=== PATIENT | male | born 1965 | race Caucasian/White ===

== ENCOUNTER 2021-08-21 09:51 | Outpatient (CLI) | payer OTHER, SELFPAY ==
--- NOTE | ~2021-08-21 | XR_ITS ---
EXAMINATION: XR_ENEMABAC_CR DATE: 08/21/2021 11:14 INDICATION: Generalized abdominal pain. Incomplete colonoscopy. TECHNIQUE: A calender let off operator radiograph was obtained. A catheter was inserted into the patient's rectum. Contra st was infused by gravity. Gas was infused by hand pump. Fluoroscopic spot images and conventional ra diographs were obtained. Fluoroscopy exposure time was 1.0 minutes. The total number of images was 60 . COMPARISON: None. FINDINGS: There are scattered diverticula in the colon. There is no abnormal mass or stricture. The c ecum is in the left abdomen. IMPRESSION: 1. Diverticulosis of the colon. Reviewed, dictated and finalized at location A.
[2021-08-21 11:55] LABS: Alanine Aminotransferase 20 U/L (6-50); Albumin Level 4.4 g/dL (3.5-5.1); Alkaline Phosphatase 85 U/L (38-126); Aspartate Amino Transferase 30 U/L (17-59); Bilirubin Indirect 0.2 mg/dL (0-1.1); Bilirubin,Total 0.3 mg/dL (0.2-1.3)
== END 2021-08-21 09:52 | disposition home or self-care (01) ==
LOC: ANHIMG 09:59
PROVIDERS: Visit Provider Internal Medicine Gastroenterology
DX: R10.11 Right upper quadrant pain (principal); K57.90 Diverticulosis of intestine, part unspecified, without perforation or abscess without bleeding
CPT/HCPCS: 36415; 74280; 82040; 82247; 82248; 84075; 84450; 84460

== ENCOUNTER 2021-09-05 09:51 | Outpatient (CLI) | payer OTHER, SELFPAY ==
--- NOTE | ~2021-09-05 | US_ITS ---
US right upper quadrant INDICATION: Right upper quadrant abdominal pain PROCEDURE: Realtime right upper abdominal ultrasound. COMPARISON: No prior studies for comparison. FINDINGS: The pancreas is normal without focal mass or pancreatic ductal dilation. Liver echotexture is normal without focal mass or intrahepatic biliary dilatation. There is normal directional flow i n the portal vein. The gallbladder is normal without stones, gallbladder wall thickening or pericholecystic fluid. Comm on bile duct measures 4 mm. No sonographic Werner's sign. IMPRESSION: 1: Normal limited abdominal ultrasound. Reviewed, dictated and finalized at location B.
== END 2021-09-05 09:52 | disposition home or self-care (01) ==
LOC: ANHIMG 09:51
PROVIDERS: Visit Provider Internal Medicine Gastroenterology
DX: R10.11 Right upper quadrant pain (principal)
CPT/HCPCS: 76705